=== PATIENT | female | born 1975 | race Caucasian/White ===

== ENCOUNTER 2017-06-27 06:36 | Day surgery (SDC) | payer BC ==
[2017-06-27] MEDS ORDERED: PROPOFOL 20 ML IV ×2 (06:43→08:44)
[2017-06-27] MEDS ORDERED: SUCCINYLCHOLINE 200 MG/10 ML VIAL. (06:43)
[2017-06-27] MEDS ORDERED: ROCURONIUM 50 MG/5 ML VIAL. (06:43)
[2017-06-27] MEDS ORDERED: LIDOCAINE 1% PF 5 ML VIAL. (06:43)
[2017-06-27] MEDS ORDERED: fentaNYL PF VIAL 100 MCG/2 ML VIAL (06:44)
[2017-06-27] MEDS ORDERED: MORPHINE SULFATE 4 MG/ML DISP.SYRIN. IV (07:00)
[2017-06-27] MEDS ORDERED: PROCHLORPERAZINE 10 MG/2 ML VIAL. IV (07:00)
[2017-06-27] MEDS ORDERED: LIDOCAINE 1% PF 2 ML VIAL. ID (07:00)
[2017-06-27] MEDS ORDERED: fentaNYL PF VIAL 100 MCG/2 ML VIAL IV (07:00)
[2017-06-27] MEDS ORDERED: ONDANSETRON PF 4 MG/2 ML VIAL. IV (07:00)
[2017-06-27] MEDS: IV RINGERS,LACTATED 1000ML 1,000 ML IV ×2 (07:09→09:27)
[2017-06-27 07:36] LABS: NEG OBC UR NEG; POS OBC UR POS; U PREG PATIENT NEGATIVE (NEG)
[2017-06-27] MEDS ORDERED: ceFAZolin 2GM PREMIX 2 GM/50 ML BAG IV (08:00)
[2017-06-27] MEDS: BUPIVACAINE 0.5% 50 ML VIAL. (08:08)
[2017-06-27] MEDS ORDERED: ONDANSETRON PF 4 MG/2 ML VIAL. (08:12)
[2017-06-27] MEDS ORDERED: DESFLURANE 61 TO 120 MINUTES IH (08:12)
[2017-06-27] MEDS ORDERED: GLYCOPYRROLATE 1 MG/5 ML VIAL. (08:12)
[2017-06-27] MEDS ORDERED: NEOSTIGMINE 10 MG/10 ML VIAL. (08:12)
[2017-06-27] MEDS ORDERED: DEXAMETHASONE SOD PHOS 20 MG/5 ML VIAL. (08:12)
[2017-06-27] MEDS: ceFAZolin SODIUM IV Push 1 GM VIAL. IVP (08:25)
[2017-06-27] MEDS ORDERED: FAMOTIDINE 20 MG/2 ML VIAL (08:33)
[2017-06-27] MEDS: oxyCODONE/APAP 7.5/325 1 TAB TABLET PO (10:05)
[2017-06-27] MEDS: fentaNYL PF VIAL 100 MCG/2 ML VIAL IV ×2 (10:12→10:20)
== END 2017-06-27 11:21 | disposition home or self-care (01) ==
LOC: SURG 06:36
DX: K42.0 Umbilical hernia with obstruction, without gangrene (principal); E66.01 Morbid (severe) obesity due to excess calories; Z68.43 Body mass index [BMI] 50.0-59.9, adult; Z98.890 Other specified postprocedural states; Z88.5 Allergy status to narcotic agent
CPT/HCPCS: 49587; 81025; 88302; J0330; J0690; J1100; J2405; J2704; J2710; J3010; J3490; S0028